=== PATIENT | male | born 1960 | race Caucasian/White ===

== ENCOUNTER → 2016-08-25 | Outpatient (CLI) | payer OTHER | LOC: FIMAGING 08:33 | PROVIDERS: ATTEND Internal Medicine Hematology & Oncology | DX: R05 Cough (principal); Z85.47 Personal history of malignant neoplasm of testis ==

== ENCOUNTER 2017-08-31 21:00 | Observation (INO) | payer OTHER ==
--- NOTE | 2017-08-31 21:14 | CPEKG ---
Heart Rate: 70 RR Interval: 857 P-R Interval: 200 QRSD Interval: 114 QT Interval: 384 QTC Interval: 415 P Atkins: 31 QRS Atkins: -9 T Wave Atkins: 7 EKG Severity - ABNORMAL ECG - EKG Impression: SINUS RHYTHM EKG Impression: INCOMPLETE RIGHT BUNDLE BRANCH BLOCK Electronically Signed By: Indra Brady 31-Aug-2017 21:37:42
--- NOTE | 2017-08-31 21:21 | EDPHY ---
H & P Time Seen by Provider: 08/31/17 21:18 HPI/ROS: Chief complaint. Chest pain HPI. 57-year-old male presents to the emergency department with chest pain for the past 24 hr. He describes as left anterior steady and dull ache. Radiates through to his back. He does not have shortness of breath how he however he has increased pain with deep breathing but not with exertion. Recent plane travel to [place]. He does have some pain posterior left thigh and calf. No fever or cough. He does have a history of DVT. No history of heart problems and had a stress test last year that the decision was to treat him medically but he did have some plaque apparently. 1 baby aspirin this morning. Patient does carry nitroglycerin with him but did not take it ROS Constitutional. no fever/chills, no weakness Eyes. no problems with vision ENT. no sore throat, no nasal drainage Cardiovascular. Left anterior chest discomfort Respiratory. Pain with deep breathing but not short of breath or cough Abdominal. no abdominal pain, no nausea/vomiting, no diarrhea . no problems urinating MS. Thigh and calf pain Skin. no rash Lymph. no swollen glands Neuro. no headache, no dizziness, no difficulty walking or with speech Past Medical/Surgical History: Appendectomy, testicular cancer with orchiectomy, DVT, GERD Father had an DC at age 65 and had heart problems developing at age 57 Social History: , nonsmoker, no alcohol Physical Exam: General Appearance: Alert well-developed male mild distress vital signs are stable Eyes: Pupils equal and round no pallor or injection. ENT, Mouth: Mucous membranes are moist. Respiratory: There are no retractions, lungs are clear to auscultation. Cardiovascular: Regular rate and rhythm. Gastrointestinal: Abdomen is soft and nontender, no masses, bowel sounds normal. Neurological: Awake and alert, sensory and motor exams grossly normal. Skin: Warm and dry, no rashes. Musculoskeletal: Neck is supple nontender. Extremities symmetrical, full range of motion. Psychiatric: Patient is oriented X 3, there is no agitation. Constitutional: Initial Vital Signs Temperature (C) 36.9 C 08/31/17 21:25 Heart Rate 73 08/31/17 21:25 Respiratory Rate 18 08/31/17 21:25 Blood Pressure 158/96 H 08/31/17 21:25 O2 Sat (%) 93 08/31/17 21:25 O2 Delivery Mode Room Air Allergies/Adverse Reactions: No Known Allergies Allergy (Verified 08/31/17 21:24) Home Medications: Medication Instructions Recorded [place]-3 Fatty Acids/Fish Oil [Fish 1 each PO 04/05/11 Oil 1,000 mg Softgel] Omeprazole mg PO 04/05/11 Aspirin 81mg (*) 08/31/17 Simvastatin 08/31/17 Medical Decision Making - Diagnostics EKG Interpretation: EKG interpreted by me shows normal sinus rhythm normal interval. There is left axis deviation. Incomplete right bundle branch block. No significant ST elevation or depression. No arrhythmia. The rate is 70 No previous EKGs for comparison Imaging Results: Imaging Impressions Chest/Thorax CTA 08/31/17 21:36 Impression: 1. No pulmonary embolism. 2. Clear lungs. Findings and recommendations discussed with SILVIA FELIX at 10:30 PM hour, 08/31/2017. Final report concurs with initial preliminary interpretation. CT angiogram reviewed by me and discussed with Dr. Abel shows no evidence for pulmonary embolus or pneumonia Procedures: IV normal saline, monitor. Aspirin and nitroglycerin in the ED ED Course/Re-evaluation: On serial evaluations patient is stable. Patient does however have continuing chest discomfort. The patient, his , and I discussed imaging and lab results. We discussed treatment plan including recommendation for admission. They expressed understanding and agreement Patient insist that he and his will drive private vehicle to [facility] for admission. Risks and benefits of this are discussed. Differential Diagnosis: The patient has had previous DVT and PE and recent plane flight. I considered pulmonary embolus. He also has both personal history of some coronary artery disease with an abnormal stress test though he refused coronary angiography. We do not know his anatomy. He has family history of coronary artery disease. No evidence currently for acute DC. - Data Points Laboratory Results: Laboratory Results 08/31/17 21:15 08/31/17 21:15 08/31/17 08/31/17 08/31/17 21:15 21:15 21:15 WBC 6.10 10^3/uL 10^3/uL (3.80-9.50) RBC 4.99 10^6/uL 10^6/uL (4.40-6.38) Hgb 15.1 g/dL g/dL (13.7-17.5) Hct 43.6 % % (40.0-51.0) MCV 87.4 fL fL (81.5-99.8) MCH 30.3 pg pg (27.9-34.1) MCHC 34.6 g/dL g/dL (32.4-36.7) RDW 13.2 % % (11.5-15.2) Plt Count 185 10^3/uL 10^3/uL (150-400) MPV 9.4 fL fL (8.7-11.7) Neut % (Auto) 50.7 % % (39.3-74.2) Lymph % (Auto) 33.0 % % (15.0-45.0) [place] % (Auto) 11.3 % % (4.5-13.0) Eos % (Auto) 4.1 % % (0.6-7.6) Baso % (Auto) 0.7 % % (0.3-1.7) Nucleat RBC Rel Count 0.0 % % (0.0-0.2) Absolute Neuts (auto) 3.10 10^3/uL 10^3/uL (1.70-6.50) Absolute Lymphs (auto) 2.01 10^3/uL 10^3/uL (1.00-3.00) Absolute Monos (auto) 0.69 10^3/uL 10^3/uL (0.30-0.80) Absolute Eos (auto) 0.25 10^3/uL 10^3/uL (0.03-0.40) Absolute Basos (auto) 0.04 10^3/uL 10^3/uL (0.02-0.10) Absolute Nucleated RBC 0.00 10^3/uL 10^3/uL (0-0.01) Immature Gran % 0.2 % % (0.0-1.1) Immature Gran # 0.01 10^3/uL 10^3/uL (0.00-0.10) PT 12.8 SEC SEC (12.0-15.0) INR 0.97 (0.83-1.16) APTT 90.0 SEC H SEC (23.0-38.0) D-Dimer < 0.27 ug/mLFEU ug/mLFEU (0.00-0.50) Sodium 140 mEq/L mEq/L (135-145) Potassium 3.7 mEq/L mEq/L (3.5-5.2) Chloride 104 mEq/L mEq/L (97-110) Carbon Dioxide 25 mEq/l mEq/l (22-31) Anion Gap 11 mEq/L mEq/L (8-16) BUN 19 mg/dL mg/dL (7-23) Creatinine 1.2 mg/dL mg/dL (0.7-1.3) Estimated GFR > 60 Glucose 95 mg/dL mg/dL (70-100) Calcium 9.1 mg/dL mg/dL (8.5-10.4) Troponin I < 0.012 ng/mL ng/mL (0.000-0.034) NT-Pro-B Natriuret Pep 106 pg/mL pg/mL (0-125) Medications Given: Discontinued Medications Aspirin (Aspirin) 324 mg PO EDNOW ONE Stop: 08/31/17 21:36 Last Admin: 08/31/17 21:47 Dose: 324 mg Sodium Chloride (Ns) 1,000 mls @ 0 mls/hr IV EDNOW ONE; Wide Open PRN Reason: Protocol Stop: 08/31/17 21:36 Last Admin: 08/31/17 21:48 Dose: 1,000 mls Departure - Departure Disposition: [facility] Inpatient Acute Clinical Impression: Chest pain Qualifiers: Chest pain type: unspecified Qualified Code(s): R07.9 - Chest pain, unspecified Condition: Fair
[2017-08-31] MEDS ORDERED: ASPIRIN 81 MG CHEWABLE TAB PO ONE (21:35)
[2017-08-31] MEDS ORDERED: NITROGLYCERIN 0.4 MG BTL SL PRN (21:35)
[2017-08-31] MEDS ORDERED: NS 1,000 ML IV ONE (21:35)
[2017-08-31 21:40] LABS: PLATELET COUNT 185 10^3/uL (150-400)
[2017-08-31 21:44] LABS: INR 0.97 (0.83-1.16); PROTIME(PATIENT) 12.8 SEC (12.0-15.0)
[2017-08-31] MEDS ORDERED: IOPAMIDOL (ISOVUE 370) 100 ML BTL IV ONE (21:51)
[2017-08-31] MEDS ORDERED: ONDANSETRON DISINTEGRATING 4 MG TAB PO PRN (22:59)
[2017-08-31] MEDS ORDERED: ACETAMINOPHEN 325 MG TAB PO PRN (22:59)
[2017-08-31] MEDS ORDERED: ONDANSETRON 4 MG/2 ML VIAL IVP PRN (22:59)
--- NOTE | 2017-08-31 23:50 | PDGENHP ---
History and Physical - Chief Complaint Chest pain - History of Present Illness 57 yo M w/ hx of CAD and DVT presents with chest pain. He describes a steady, left sided ache that radiates to his back. He has no clear exacerbating or alleviating symptoms. The pain has been present for >24 hours. He states this is fairly similar to the discomfort that led him to see a health care administrator last year. Of note, he did see Dr. Mckinley Pozo for 1 year of atypical chest pain. This was evaluated with a nuclear imaging study in December of 2016 with abnormal findings. Patient was initially scheduled for angiography but declined and has been managed medically since. The results of the study are below. There is no motion or soft tissue attenuation on rest and stress . Myocardial Perfusion Imaging: Shows a small moderate area of lateral wall ischemia. There is no transient ischemic dilatation. LV systolic function: There is normal left ventricular systolic function with no wall motion abnormalities with normal thickening . Ejection fraction is normal at 67 % The Lung Heart Ratio is Normal at 0.36. The LV EDV= 94 ml N Male<142ml ). The LV ESV= 31 ml ( N Male<65ml ). RECOMMENDATIONS/CONCLUSIONS: Small area of lateral wall ischemia associated with normal LV function. Study consistent with branch vessel disease. Clinical correlation suggested Comparison: There are no prior studies for comparison. History Information - Allergies/Home Medication List Allergies/Adverse Reactions: No Known Allergies Allergy (Verified 08/31/17 21:24) Home Medications: [place]-3 Fatty Acids/Fish Oil [Fish Oil 1,000 mg Softgel] 1 each PO 04/05/11 [ Last Taken Unknown] Omeprazole mg PO 04/05/11 [Last Taken Unknown] Aspirin 81mg (*) 08/31/17 [Last Taken Unknown] Simvastatin 08/31/17 [Last Taken Unknown] I have personally reviewed and updated: family history, medical history - Past Medical History coronary artery disease, cancer - Surgical History Reports: appendectomy Additional surgical history: Orchiectomy - Family History Positive for: CAD (Father had OH at 65) - Social History Smoking Status: Former smoker Review of Systems Review of Systems: ROS: 10pt was reviewed & negative except for what was stated in HPI & below Physical Exam Physical Exam: Temp Pulse Resp BP Pulse Ox 36.6 C 60 16 128/78 H 94 08/31/17 23:31 08/31/17 23:31 08/31/17 23:31 08/31/17 23:31 08/31/17 23:31 Constitutional: no apparent distress, not in pain Eyes: PERRL, EOMI Ears, Nose, Mouth, Throat: moist mucous membranes, no oral mucosal ulcers Cardiovascular: regular rate and rhythym, no murmur, rub, or gallop Respiratory: no respiratory distress, no rales or rhonchi Gastrointestinal: normoactive bowel sounds, soft, non-tender abdomen Skin: warm, normal color Musculoskeletal: full muscle strength, no muscle tenderness Neurologic: AAOx3, CN II-XII Intact Psychiatric: interacting appropriately, not anxious Lab Data & Imaging Review 08/31/17 21:15 08/31/17 21:15 WBC 6.10 10^3/uL (3.80-9.50) 08/31/17 21:15 RBC 4.99 10^6/uL (4.40-6.38) 08/31/17 21:15 Hgb 15.1 g/dL (13.7-17.5) 08/31/17 21:15 Hct 43.6 % (40.0-51.0) 08/31/17 21:15 MCV 87.4 fL (81.5-99.8) 08/31/17 21:15 MCH 30.3 pg (27.9-34.1) 08/31/17 21:15 MCHC 34.6 g/dL (32.4-36.7) 08/31/17 21:15 RDW 13.2 % (11.5-15.2) 08/31/17 21:15 Plt Count 185 10^3/uL (150-400) 08/31/17 21:15 MPV 9.4 fL (8.7-11.7) 08/31/17 21:15 Neut % (Auto) 50.7 % (39.3-74.2) 08/31/17 21:15 Lymph % (Auto) 33.0 % (15.0-45.0) 08/31/17 21:15 [place] % (Auto) 11.3 % (4.5-13.0) 08/31/17 21:15 Eos % (Auto) 4.1 % (0.6-7.6) 08/31/17 21:15 Baso % (Auto) 0.7 % (0.3-1.7) 08/31/17 21:15 Nucleat RBC Rel Count 0.0 % (0.0-0.2) 08/31/17 21:15 Absolute Neuts (auto) 3.10 10^3/uL (1.70-6.50) 08/31/17 21:15 Absolute Lymphs (auto) 2.01 10^3/uL (1.00-3.00) 08/31/17 21:15 Absolute Monos (auto) 0.69 10^3/uL (0.30-0.80) 08/31/17 21:15 Absolute Eos (auto) 0.25 10^3/uL (0.03-0.40) 08/31/17 21:15 Absolute Basos (auto) 0.04 10^3/uL (0.02-0.10) 08/31/17 21:15 Absolute Nucleated RBC 0.00 10^3/uL (0-0.01) 08/31/17 21:15 Immature Gran % 0.2 % (0.0-1.1) 08/31/17 21:15 Immature Gran # 0.01 10^3/uL (0.00-0.10) 08/31/17 21:15 PT 12.8 SEC (12.0-15.0) 08/31/17 21:15 INR 0.97 (0.83-1.16) 08/31/17 21:15 APTT 90.0 SEC (23.0-38.0) H 08/31/17 21:15 D-Dimer < 0.27 ug/mLFEU (0.00-0.50) 08/31/17 21:15 Sodium 140 mEq/L (135-145) 08/31/17 21:15 Potassium 3.7 mEq/L (3.5-5.2) 08/31/17 21:15 Chloride 104 mEq/L (97-110) 08/31/17 21:15 Carbon Dioxide 25 mEq/l (22-31) 08/31/17 21:15 Anion Gap 11 mEq/L (8-16) 08/31/17 21:15 BUN 19 mg/dL (7-23) 08/31/17 21:15 Creatinine 1.2 mg/dL (0.7-1.3) 08/31/17 21:15 Estimated GFR > 60 08/31/17 21:15 Glucose 95 mg/dL (70-100) 08/31/17 21:15 Calcium 9.1 mg/dL (8.5-10.4) 08/31/17 21:15 Troponin I < 0.012 ng/mL (0.000-0.034) 08/31/17 21:15 NT-Pro-B Natriuret Pep 106 pg/mL (0-125) 08/31/17 21:15 Imaging Review: Imaging Impressions Chest/Thorax CTA 08/31/17 21:36 Impression: 1. No pulmonary embolism. 2. Clear lungs. Findings and recommendations discussed with SILVIA FELIX at 10:30 PM hour, 08/31/2017. Final report concurs with initial preliminary interpretation. Visualized and Interpreted EKG results: Yes EKG Interpretation: Positive for: normal sinsus rhythm, other (Incomplete RBBB) Assessment & Plan Assessment: 57 yo M w/ hx of CAD presents with chest pain. Plan: 1. Chest pain - Although atypical patient does have history of abnormal stress test in December of 2016. He declined catheterization at that time and instead opted for medical treatment. Troponin negative in ED and ECG without acute ischemia. - Admit to PCU for observation - Monitor on telemetry, trend cardiac enzymes - Noting history of abnormal stress test without cath, will consult cardiology to help discuss next step 2. CAD - Abnormal stress test in December of 2016 consistent with lateral ischemia, likely from a branch artery. On ASA and statin. - Acute management as above 3. Hx of DVT - Provoked by port for chemo; has not had clot in 8 years. CTPE negative in ED. 4. Hx of testicular cancer - Treated with surgery and radiation Diet - NPO @ PR Code - Full Ppx - LMWH Dispo - Admit to PCU for observation
[2017-09-01] MEDS ORDERED: NITROGLYCERIN 0.4 MG BTL SL PRN ×3 (00:08→16:19)
[2017-09-01 04:28] LABS: PLATELET COUNT 154 10^3/uL (150-400)
[2017-09-01 08:36] VITALS: O2SAT 94
[2017-09-01 08:39] VITALS: TEMP 99.5
[2017-09-01] MEDS ORDERED: ENOXAPARIN 40 MG/0.4 ML SYR SC SCH (09:00)
[2017-09-01] MEDS ORDERED: DIAZEPAM 5 MG TAB PO ONE (11:07)
[2017-09-01] MEDS ORDERED: ASPIRIN EC 325 MG TAB PO ONE ×2 (11:07→11:34)
[2017-09-01] MEDS ORDERED: TEMAZEPAM 15 MG CAP PO PRN (11:07)
[2017-09-01] MEDS ORDERED: ACETAMINOPHEN 325 MG TAB PO PRN (11:07)
[2017-09-01] MEDS ORDERED: diphenhydrAMINE 25 MG CAP PO ONE (11:07)
[2017-09-01] MEDS ORDERED: FAMOTIDINE 20 MG TAB PO ONE (11:07)
[2017-09-01] MEDS ORDERED: NS 1,000 ML IV SCH (11:15)
[2017-09-01] MEDS ORDERED: DIAZEPAM 5 MG TAB ONE (11:34)
[2017-09-01] MEDS ORDERED: FAMOTIDINE 20 MG TAB ONE (11:34)
--- NOTE | 2017-09-01 12:32 | GCON ---
[f rep st] CONSULTATION He is admitted to the hospital with days of left chest discomfort. It is intermittent. It comes and goes, but is actually lasting quite long when it occurs to him. It can last for hours or all day lo ng. It is slightly worse with exertion. However, it is also worse with position. When he raises his arm over his head at night, it is worse. Sometimes when he lays on his left side, it is worse. It is more of a steady pain. It is not sharp or dull. It is just an ache that is there. It does no t radiate into the arm or jaw. He has had no sweating, nausea, vomiting. He has had no diaphoresis. He does not have shortness of breath or dyspnea on exertion. He has not been exercising. He was in [place] on a trip and that is when the pain recurred. He had this pain 8 months ago and went to see Dr. Clemens for an evaluation. At that time, he had an abnormal nuclear stress test. He was recommended to have coronary angiography, but he refused. He said he would still not be here for further evaluation if the pain had not come back. He has no orthopnea, PND, dyspnea on exertion. No cough, hemoptysis, pleuritic chest pain, shortness of breath, sinus infection, upper respiratory t ract infection. No fever, chills, or cough. No nausea, vomiting, diarrhea, constipation, weight loss. No trauma to the head, neck, or chest. No lightheadedness, dizziness, syncope. No history of atrial arrhythmias, palpitations. He does not have dysuria or frequency. He has no other major complaints at this time. The patient had a remote history of a DVT. He has no symptoms associated with that at this time. RISK FACTORS: Positive for obesity, hyperlipidemia, and an abnormal nuclear stress test. FAMILY HISTORY: Patient has a plus-minus family history of premature coronary disease, so to be safe it is worth saying that he does have a family history of premature coronary disease. Cardiac risk factors are negative for diabetes, hypertension, hyperuricemia or smoking at this time. Patient has never had known coronary disease. No myocardial infarction, stenting, or other cardiovas cular interventions. ALLERGIES: None. MEDICATIONS: Simvastatin, aspirin, some [id number] medications. FAMILY HISTORY: His father had a stent at age 57, but he says that maybe it was at 52 or 55. He him self is not sure. His father and his paternal grandfather both at age 65 of myocardial infarcti ons. There has been no other family history of clear-cut people having myocardial infarction at 55 o r less. PAST SURGICAL HISTORY: Surgical history is in the record. 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 He lives with his , who is healthy. They have 4 children who are girls. They are all healthy. He does not ex ercise because he has bad knees. The right is worse than the left, and so bad that he thinks he need s to get them worked on surgically. He does not smoke cigarettes. What he does do is smoke a cigar 6 times a year. He does not drink significant amounts of alcohol. REVIEW OF SYSTEMS: 10-point review of systems negative except as noted. PHYSICAL EXAMINATION: VITAL SIGNS: Blood pressure 115/70, heart rate 65, respiratory rate 8. GENER AL: He is sitting comfortably in a hospital bed. HEENT: Pupils equal and reactive. Mucous membran es of mouth are moist. CARDIOVASCULAR: S1, S2. Soft systolic murmur left sternal border, no diasto lic murmur. No S3, S4, or rubs. PULMONARY: Rhonchi. No rales, wheezing, dullness. ABDOMEN: Soft , nontender, without masses. Abdominal exam does show the patient is significantly overweight. Ther e is no organomegaly. Bowel sounds are normal. EXTREMITIES: No edema, inflammation or ulceration. CRANIAL NERVES: Cranial nerves 2-12 grossly normal. Motor and sensory intact. PSYCH: No obvious anxiety or depression. SKIN: Shows age-related changes. CARDIOVASCULAR: S1, S2. Soft systolic mu rmur left sternal border. No diastolic murmur. No S3, S4. No rubs. Abdominal exam does show the p atient is significantly overweight. There is no organomegaly. Bowel sounds are normal. CVA: No te nderness. NEUROLOGIC: Exam is intact. LAB: Troponins are negative. The patient had a nuclear stress test 8 months ago, which showed a sma ll moderate area of lateral wall ischemia, normal LV systolic function. Ejection fraction 67%. CT scan of the lung shows no pulmonary embolism. Clear lungs. ASSESSMENT AND PLAN: 1. Chest pain. 2. Abnormal nuclear stress test. 3. Hyperlipidemia. 4. Obesity. 5. Sedentary lifestyle. The patient has worked hard at a stressful position for a long time. He is having what is very atypi jacinto chest pain. However, he has an abnormal nuclear stress test. He had a father who had a stent so mewhere around the age of 55, and a father and grandfather at 65 of coronary disease. He is obe se. His lipids are elevated. He has a very remote smoking history and he is at risk for myocardial infarction, sudden cardiac , etc. So, I would recommend we proceed to coronary angiography at t his time. I have told him about the risks of cath, and I have also told him about the options he has , which include getting a 2nd opinion, doing further noninvasive testing before we do invasive testin g, getting medical therapy for this observation hospitalization, nontraditional therapy, etc. He is willing to go ahead with angiography because his own father had a negative nuclear stress test 2 days before he dropped of a heart attack, so he understands the limitations and has lived through [facility] limitations of stress testing. So, he and his have been present. We went over all the options and they want to proceed. Jarrell angeles answered all of both of their questions. I took extra time to explain to him that we may find critical coronary disease that requires stenting or other intervention. However, his pain is quite atypical for coronary artery disease and, even if we stented something, we could not be sure until down the road if his pain improved and went away or not. They understand that. And they want to proceed. They have accepted the idea of whatever interventions are indicated, and we have gone over those. 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 History of deep venous thrombosis. His evaluation for pulmonary embolic disease is negative at this time. All their questions have been answered. /[id number]/MODL
[2017-09-01] MEDS ORDERED: LIDOCAINE 1% 300 MG/30 ML SDV ONE (12:50)
[2017-09-01] MEDS ORDERED: fentaNYL 100 MCG/2 ML INJ ONE ×2 (12:51→13:48)
[2017-09-01] MEDS ORDERED: MIDAZOLAM 2 MG/2 ML VIAL ONE ×3 (12:51→13:48)
[2017-09-01] MEDS ORDERED: IOPAMIDOL (ISOVUE-370) 150 ML BTL IV ONE (12:51)
--- NOTE | 2017-09-01 13:18 | PDPROPOC ---
Sedation Plan of Care ASA Classification: ASA 1 Mallampati Score: Class 1 Mallampati Reference Image: Patient passed 3-3-2 rule?: Yes
--- NOTE | 2017-09-01 13:37 | PDHPUP ---
History & Physical Update H&P update statement: This history and physical update is based on an assessment of the patient which was completed after admission or registration (within 24 hours), but prior to the surgery/procedure. H&P update: H&P reviewed & patient examined (pt for cath julio cesar for ongoing rest cp and hx of abnl nuc ett and multiple risk factors for cad. )
--- NOTE | 2017-09-01 14:21 | PDDXCAT ---
Diagnostic Cath Note - . 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 may be developmental . EDP: 21 LVEF: 57 Wall motion: nl / no mr. no Complications: w/o Estimated blood loss: <50ml Patient Problems: Problems Problem Status Onset Chest pain Acute
--- NOTE | 2017-09-01 15:45 | ASMTCASEMG ---
Living Arrangements What is your living Answers: With Spouse arrangement? Who do you live with? Type Of Residence What kind of residence do Answers: House you live in? Discharge Plan Comments Coordination Status Comments Notes: Pt is a 57 y/o female admitted for chest pain. Pt will most likely d/c independent when medically stable. No therapies ordered at this time. CM available for changes. Plan: Independent Date Signed: 09/01/2017 03:44 PM Electronically Signed By:SYED Zaldivar
[2017-09-01 15:49] VITALS: PULSE 54; RESP 16
--- NOTE | 2017-09-01 15:56 | HOSPPROG ---
Hospitalist Progress Note Assessment/Plan: 57 yo m w cp, neg eval home today see dc summary Subjective: neg cath Objective: Vital Signs Temp Pulse Resp BP Pulse Ox 37.5 C 54 L 16 154/85 H 94 09/01/17 08:34 09/01/17 15:35 09/01/17 15:35 09/01/17 15:35 09/01/17 15:35 Laboratory Results 09/01/17 03:34 09/01/17 03:34 08/31/17 09/01/17 09/02/17 05:59 05:59 05:59 Intake Total 1100 Balance 1100 PT 12.8 SEC (12.0-15.0) 08/31/17 21:15 INR 0.97 (0.83-1.16) 08/31/17 21:15 - Physical Exam Constitutional: no apparent distress, not in pain Eyes: PERRL, anicteric sclera Ears, Nose, Mouth, Throat: moist mucous membranes, hearing normal Cardiovascular: regular rate and rhythym, no murmur, rub, or gallop Respiratory: no respiratory distress, no rales or rhonchi Gastrointestinal: normoactive bowel sounds, soft, non-tender abdomen Genitourinary: no bladder fullness, No lopez in urethra Skin: warm, normal color Musculoskeletal: full muscle strength Neurologic: AAOx3 ICD10 Worksheet Patient Problems: Problems Problem Status Onset Chest pain Acute
[2017-09-01] MEDS ORDERED: OXYCODONE/APAP 5/325 TAB PO PRN (16:19)
[2017-09-01] MEDS ORDERED: ONDANSETRON 4 MG/2 ML VIAL IVP PRN (16:19)
[2017-09-01] MEDS ORDERED: ATROPINE SULFATE 1 MG/10 ML SYR IVP PRN (16:19)
[2017-09-01] MEDS ORDERED: HYDROCODONE/APAP 5/325 TAB PO PRN (16:19)
--- NOTE | 2017-09-01 16:45 | ECHO ---
[email or web address] [address] [address] Main: [phone] Fax: Transthoracic Echocardiogram Name: MARCELLA SALAZAR MR#: [id number] Study Date: 09/01/2017 Study Time: 02:48 PM Date of : 1960 Age: 57 year(s) Height: 182.9 cm (72 in.) Weight: 120.2 kg (265 lb.) BSA: 2.4 m2 Gender: Male Examination: Echo Indication: COPD/SOB/CP Image Quality: Contrast: Requested by: Arturo Severino BP: 126 mmHg/86 mmHg Heart Rate: Rhythm: Indication: COPD/SOB/CP Procedure Staff [place] Applier: Jonna Jones RDCS Reading Physician: Arturo Severino MD Requesting Provider: Conclusions: Normal size left ventricle. Mild concentric LV hypertrophy. Normal global systolic LV function. The ejection fraction is estimated to be 65-70 %. No regional wall motion abnormality. Normal size right ventricle. The left atrium is normal in size. The right atrium is normal in size. The mitral valve is normal in appearance and function. Trivial mitral valve regurgitation. The aortic valve is normal in appearance and function. The tricuspid valve is normal in appearance and function. Measurements: Chambers Valvular Assessment AV/MV Valvular Assessment TV/PV Normal Normal Normal Name Value Range Name Value Range Name Value Range Ao Harmony (MM): 4.2 cm (2.2 cm-3.7 AV meanP mmHg ( - ) cm) MV E Vmax: 0.77 m/s ( - ) LVDd (2D): 4.3 cm (4.2 cm-5.9 MV A Vmax: 0.84 m/s ( - ) cm) MV E/A: 0.92 ( - ) LVEF (MOD4): 73 % (>=55 %) EF Range: 65-70 % Continued Measurements: Chambers Valvular Assessment AV/MV Name Value Name Value LADs: 3.8 cm MV E' Septal: 0.07 m/s Patient: MARCELLA SALAZAR Study Date: 09/01/2017 Page 1 of 2 02:48 PM LADs Lon.7 cm MV E/E' Septal: 11.30 LA Area: 20.7 cm2 MV E/E' Lateral: 6.50 Findings: Left Ventricle: Normal size left ventricle. Mild concentric LV hypertrophy. Normal global systolic LV function. The ejection fraction is estimated to be 65-70 %. No regional wall motion abnormality. Right Ventricle: Normal size right ventricle. Left Atrium: The left atrium is normal in size. Right Atrium: The right atrium is normal in size. Mitral Valve: The mitral valve is normal in appearance and function. Trivial mitral valve regurgitation. Aortic Valve: The aortic valve is normal in appearance and function. Tricuspid Valve: The tricuspid valve is normal in appearance and function. Trivial tricuspid valve regurgitation. Pulmonic Valve: Pulmonary valve not well visualized. Aorta: The aorta is normal. Pericardium: No pericardial effusion. (No Signature Object) Patient: MARCELLA SALAZAR Study Date: 09/01/2017 Page 2 of 2 02:48 PM [id number]
--- NOTE | 2017-09-01 17:14 | GDS ---
[f rep st] DISCHARGE SUMMARY DISCHARGE DIAGNOSES: 1. Chest pain of uncertain etiology. 2. History of deep venous thrombosis. 3. Suspected coronary artery disease. Patient presented with chest pain. He had nonischemic EKG, negative troponin, negative CT of his [address]. He has a history of positive stress test. He underwent angiogram with Dr. Arturo Severino that s howed an ostial 15% lesion in the right coronary artery that was felt probably not to even be coronar y disease, such as developmental. He had intact LVEF with a LVEDP of 20 mmHg. It was considered a n egative catheterization. The patient is discharged home on unchanged medication regimen of aspirin, statin. /[id number]/MODL
[2017-09-01 18:15] VITALS: BP 141/84
[2017-09-02] MEDS ORDERED: ASPIRIN 81 MG CHEWABLE TAB PO SCH (09:00)
[2017-09-02] MEDS ORDERED: PANTOPRAZOLE SODIUM 40 MG TAB PO SCH (09:00)
[2017-09-02] MEDS ORDERED: NON-FORMULARY NEW DRUG (Omeprazole [Omeprazole] 40 MG) PO SCH (09:00)
[2017-09-02] MEDS ORDERED: OMEGA-3 FATTY ACIDS 1,000 MG CAP PO SCH (09:00)
[2017-09-02] MEDS ORDERED: ATORVASTATIN CALCIUM 20 MG TAB PO SCH (09:00)
[2017-09-02] MEDS ORDERED: NON-FORMULARY NEW DRUG (Simvastatin [Zocor] 40 MG) PO SCH (09:00)
== END 2017-09-01 18:38 | disposition home or self-care (01) ==
LOC: CED 21:00 → CEDHOLD 22:59 → F2W 23:58
PROVIDERS: ADMIT Student in an Organized Health Care Education/Training Program; ATTEND Internal Medicine
PROC: B2151ZZ Fluoroscopy of Left Heart using Low Osmolar Contrast (ICD-10-PCS; principal; 2017-08-31)
PROC: 4A023N7 Measurement of Cardiac Sampling and Pressure, Left Heart, Percutaneous Approach (ICD-10-PCS; principal; 2017-08-31)
PROC: B2111ZZ Fluoroscopy of Multiple Coronary Arteries using Low Osmolar Contrast (ICD-10-PCS; principal; 2017-08-31)
DX: R07.9 Chest pain, unspecified (principal); R94.39 Abnormal result of other cardiovascular function study; E78.5 Hyperlipidemia, unspecified; E66.9 Obesity, unspecified; Z68.36 Body mass index [BMI] 36.0-36.9, adult; K21.9 Gastro-esophageal reflux disease without esophagitis; I25.10 Atherosclerotic heart disease of native coronary artery without angina pectoris; Z79.82 Long term (current) use of aspirin; Z87.891 Personal history of nicotine dependence; Z86.718 Personal history of other venous thrombosis and embolism; Z85.47 Personal history of malignant neoplasm of testis; Z82.49 Family history of ischemic heart disease and other diseases of the circulatory system; Z90.79 Acquired absence of other genital organ(s)
CPT/HCPCS: 71275; 93005; 93306; 93458; G0378; 80048-PO; 83880-PO; 84484-PO; 85025-PO; 85378-PO; 85610-PO; 85730-PO; J1644; J2250; J3010; Q9967

== ENCOUNTER → 2018-05-08 | Outpatient (CLI) | payer OTHER | LOC: FIMAGING 07:36 | PROVIDERS: ATTEND Orthopaedic Surgery | DX: M17.11 Unilateral primary osteoarthritis, right knee (principal) ==

== ENCOUNTER 2018-06-06 06:39 | Observation (INO) | payer OTHER ==
--- NOTE | 2018-06-06 06:26 | PDHPUP ---
History & Physical Update H&P update statement: This history and physical update is based on an assessment of the patient which was completed after admission or registration (within 24 hours), but prior to the surgery/procedure. H&P update: H&P reviewed & patient examined, no change in patient's condition since H&P completed
[2018-06-06] MEDS ORDERED: ceFAZolin 2 GM/DEXTROSE 100 ML IV ONE (07:03)
[2018-06-06] MEDS ORDERED: DEXAMETHASONE 4 MG/ML VIAL IVP ONE (07:03)
[2018-06-06] MEDS ORDERED: FAMOTIDINE 20 MG TAB PO ONE (07:03)
[2018-06-06] MEDS ORDERED: ACETAMINOPHEN 325 MG TAB PO ONE (07:03)
[2018-06-06] MEDS ORDERED: LIDOCAINE 1% 2 ML INJ ID PRN (07:07)
[2018-06-06] MEDS ORDERED: LR 1,000 ML IV ONE (07:07)
[2018-06-06] MEDS ORDERED: TRANEXAMIC ACID 3,000 MG/50 ML BAG IRR ONE (07:46)
[2018-06-06] MEDS ORDERED: ROPIVACAINE 0.2% 80 MG, EPINEPHrine 0.2 MG, KETOROLAC TROMETHAMINE 30 MG in SYRINGE 0 ML IU ONE (08:00)
[2018-06-06] MEDS ORDERED: TRANEXAMIC ACID 3,000 MG in NS (SYRINGE) 50 ML IRR ONE (08:00)
[2018-06-06] MEDS ORDERED: MIDAZOLAM 2 MG/2 ML VIAL IVP ONE (09:04)
--- NOTE | 2018-06-06 09:06 | PDANEPAE ---
ANE Past Medical History - Cardiovascular History Hx Hypertension: No Hx Arrhythmias: No Hx Chest Pain: Yes Hx Coronary Artery / Peripheral Vascular Disease: No Hx CHF / Valvular Disease: No Hx Palpitations: No Cardiovascular History Comment: negative heart cath August 2017 - Pulmonary History Hx COPD: No Hx Asthma/Reactive Airway Disease: No Hx Recent Upper Respiratory Infection: No Hx Oxygen in Use at Home: No Hx Sleep Apnea: Yes Sleep Apnea Screening Result - Last Documented: Positive Pulmonary History Comment: DAO positive, uses Cpap. received bleomycin treatments, 2007 - no Dx of pulmonary fibrosis, has never had PFT's - Neurologic History Hx Cerebrovascular Accident: No Hx Seizures: No Hx Dementia: No - Endocrine History Hx Diabetes: No Obesity: mild - Renal History Hx Renal Disorders: No - Liver History Hx Hepatic Disorders: No - Neurological & Psychiatric Hx Hx Neurological and Psychiatric Disorders: No - Cancer History Hx Cancer: Yes Cancer History Comment: testicular CA, 2007 - Congenital Disorder History Hx Congenital Disorders: No - GI History GERD: moderate Hx Gastrointestinal Disorders: Yes Gastrointestinal History Comment: GERD. hiatal hernia - Other Health History Other Health History: wears glasses for reading. tinitis - Chronic Pain History Chronic Pain: Yes (right knee) - Surgical History Prior Surgeries: appendectomy. right knee scope. power port placement & removed. heart cath. upper and lower teeth removal with permanent implants ANE Review of Systems Review of Systems: - Exercise capacity METS (RN): 4 METS ANE Patient History - Allergies Allergies/Adverse Reactions: cats Allergy (Uncoded 06/06/18 07:31) Wheezing enviromental Allergy (Uncoded 06/06/18 07:31) Itching - Home Medications Home medications: home medication list seen and reviewed Home Medications: Aspirin [Aspirin 81mg (*)] 81 mg PO DAILY 08/31/17 [Last Taken 05/27/18] Simvastatin [Zocor] 40 mg PO DAILY 08/31/17 [Last Taken 06/06/18 05:30] [place]-3 Fatty Acids [Fish Oil 1000 mg (*)] 2,000 mg PO DAILY 09/01/17 [Last Taken 05/27/18] Omeprazole 40 mg PO DAILY 09/01/17 [Last Taken 06/06/18 05:30] - NPO status NPO Status: no food or drink >8 hours NPO Since - Liquids (Date): 06/06/18 NPO Since - Liquids (Time): 06:45 NPO Since - Solids (Date): 06/05/18 NPO Since - Solids (Time): 20:00 - Anes Hx Anes Hx: no prior problems - Smoking Hx Smoking Status: Former smoker - Family Anes Hx Family Hx Anesthesia Complications: none ANE Labs/Vital Signs - Vital Signs Blood Pressure: 151/97 Heart Rate: 66 Respiratory Rate: 16 O2 Sat (%): 94 Height: 182.88 cm Weight: 113.398 kg ANE Physical Exam - Airway Neck exam: FROM Mallampati Score: Class 3 Mouth exam: normal dental/mouth exam - Pulmonary Pulmonary: no respiratory distress, no rales or rhonchi, clear to auscultation - Cardiovascular Cardiovascular: regular rate and rhythym, no murmur, rub, or gallop - ASA Status ASA Status: II ANE Anesthesia Plan Anesthesia Plan: spinal Regional Anesthesia: adductor canal FNB
[2018-06-06] MEDS ORDERED: fentaNYL 100 MCG/2 ML INJ ONE (09:12)
[2018-06-06] MEDS ORDERED: DEXAMETHASONE 4 MG/ML VIAL ONE ×2 (09:13)
[2018-06-06] MEDS ORDERED: PROPOFOL/EMULSION 500 MG/50 ML BOTTLE IV ONE (09:32)
[2018-06-06] MEDS ORDERED: HYDROCODONE/APAP 5/325 TAB PO PRN (10:01)
[2018-06-06] MEDS ORDERED: LR 500 ML IV PRN (10:01)
[2018-06-06] MEDS ORDERED: fentaNYL 100 MCG/2 ML INJ IVP PRN (10:01)
[2018-06-06] MEDS ORDERED: NALOXONE HCL 0.4 MG/ML INJ IVP PRN (10:01)
[2018-06-06] MEDS ORDERED: ONDANSETRON 4 MG/2 ML VIAL IVP PRN ×2 (10:01→10:48)
[2018-06-06] MEDS ORDERED: ACETAMINOPHEN 500 MG TAB PO PRN (10:01)
[2018-06-06] MEDS ORDERED: oxyCODONE IR 5 MG TAB PO PRN (10:01)
[2018-06-06] MEDS ORDERED: PROMETHAZINE HCL 25 MG/ML INJ IVP PRN ×2 (10:01→10:48)
--- NOTE | 2018-06-06 10:47 | POSTOPPROG ---
Post Op Note Date of Operation: 06/06/18 Surgeon: Franklin Franco Railcar Switchman: agustina franco PA-C Anesthesiologist: dr. bermudez Anesthesia: Spinal, Other (Specify) (adductor canal block) Pre-op Diagnosis: right knee OA Post-op Diagnosis: same Indication: right knee pain Procedure: R TKA robot assisted severe knee OA Findings: r knee OA Inf/Abcess present in the surg proc area at time of surgery?: No EBL: 50-100
[2018-06-06] MEDS ORDERED: METOCLOPRAMIDE 10 MG/2 ML VIAL IVP PRN (10:48)
[2018-06-06] MEDS ORDERED: PROMETHAZINE HCL 25 MG SUPPR PR PRN (10:48)
[2018-06-06] MEDS ORDERED: POLYETHYLENE GLYCOL 3350 17 GM PKT PO PRN (10:48)
[2018-06-06] MEDS ORDERED: ONDANSETRON DISINTEGRATING 4 MG TAB PO PRN (10:48)
[2018-06-06] MEDS ORDERED: MAGNESIUM HYDROXIDE 30 ML UDCUP PO PRN (10:48)
[2018-06-06] MEDS ORDERED: BISACODYL 10 MG SUPP PR PRN (10:48)
[2018-06-06] MEDS ORDERED: DIPHENOXYLATE/ATROPINE LOMOTIL 1 TAB PO PRN (10:48)
[2018-06-06] MEDS ORDERED: TEMAZEPAM 15 MG CAP PO PRN (10:48)
[2018-06-06] MEDS ORDERED: LACTULOSE 20 GM/30 ML UDCUP PO PRN (10:48)
[2018-06-06] MEDS ORDERED: diphenhydrAMINE 25 MG CAP PO PRN (10:48)
[2018-06-06] MEDS ORDERED: LR 1,000 ML IV SCH (11:00)
--- NOTE | 2018-06-06 11:09 | POSTANESTH ---
Post Anesthetic Evaluation Cardiovascular Status: Normal, Stable, Similar to Pre-Op Cond Respiratory Status: Normal, Stable, Similar to Pre-op Cond. Level of Consciousness/Mental Status: Can Participate in Eval, Alert and Oriented Pain Control: Adequate, Prn Tx Ordered (Adductor canal nerve block in PACU using U/S, 20 ml 0.25% bupiv + epi, no evident complications.) Nausea/Vomiting Control: Adequate, Prn Tx Ordered Complications Possibly Related to Anesthesia: None Noted
[2018-06-06] MEDS: ACETAMINOPHEN 325 MG TAB PO SCH ×2 (12:33→17:17)
[2018-06-06] MEDS: CYCLOBENZAPRINE 10 MG TAB PO PRN (14:41)
[2018-06-06] MEDS: oxyCODONE IR 5 MG TAB PO PRN ×3 (14:41→21:53)
[2018-06-06] MEDS ORDERED: WARFARIN SODIUM 5 MG TAB PO SCH (16:00)
[2018-06-06] MEDS: ceFAZolin 2 GM/DEXTROSE 100 ML IV SCH (17:19)
[2018-06-06] MEDS: SENNOSIDES/DOCUSATE SODIUM TAB PO SCH (21:52)
[2018-06-06] MEDS: FAMOTIDINE 20 MG TAB PO SCH (21:53)
[2018-06-07] MEDS: ACETAMINOPHEN 325 MG TAB PO SCH ×2 (01:05→05:35)
[2018-06-07] MEDS: oxyCODONE IR 5 MG TAB PO PRN ×2 (01:07→05:35)
[2018-06-07] MEDS: CYCLOBENZAPRINE 10 MG TAB PO PRN (01:15)
[2018-06-07] MEDS: ceFAZolin 2 GM/DEXTROSE 100 ML IV SCH (01:23)
[2018-06-07 05:19] LABS: INR 1.01 (0.83-1.16); PROTIME(PATIENT) 13.5 SEC (12.0-15.0)
[2018-06-07 08:02] VITALS: BP 138/76
[2018-06-07] MEDS: SENNOSIDES/DOCUSATE SODIUM TAB PO SCH (08:08)
[2018-06-07] MEDS: FAMOTIDINE 20 MG TAB PO SCH (08:09)
--- NOTE | 2018-06-07 08:23 | GOP ---
DATE OF OPERATION: 06/06/2018 SURGEON: Aman Santacruz MD PROGRAM COUNSELOR: TY Russell. ANESTHESIA: Spinal. PREOPERATIVE DIAGNOSIS: Right knee osteoarthritis. POSTOPERATIVE DIAGNOSIS: Right knee osteoarthritis. PROCEDURE PERFORMED: Right total knee arthroplasty with computer navigation, robotic assist. FINDINGS: ESTIMATED BLOOD LOSS: 30 cc. INDICATIONS: The patient is a 58-year-old male with severe and progressive pain and deformity of the right knee unresponsive to conservative care. The risks and benefits of surgical intervention were explained in detail. DESCRIPTION OF PROCEDURE: The patient was brought to the operative room and placed on the table in t he supine position. Spinal anesthesia was induced without difficulty. A pneumatic tourniquet was appl ied about the right proximal thigh, and the leg was prepped and draped in a sterile fashion. The leg mg was applied. After exsanguination by elevation the tourniquet was inflated to 250 mmHg. Incision was made anterior medial from the tibial tuberosity to a point 2 cm proximal to the superior pole of the patella. Medial parapatellar arthrotomy was carried out from the superior pole of the pa tella and posteriorly in line with the fibers of the Type II VMO. The medial collateral ligament was elevated and the infrapatellar fat pad was resected. The patella was everted and the articular surface was excised. A 38 mm patellar button was placed. Attention was turned first to the distal aspect of the femur. After exposure of the femur, 2 half pi ns were placed for fixation of the femoral array. In a similar fashion, 2 pins were placed anteromed ial on the tibia for fixation of the tibial array. External land marking and registration of the hip center were performed without difficulty. Internal femoral and tibial registration was carried out without difficulty and the femoral and tibial checkpoints were placed and verified for accuracy. Attention was turned to the femur. The foot print for the size 6 femoral component was cut with the saw using the Peek@U robotic system and verified for accuracy against the CT based plan. In a similar f ashion, the saw was used to cut the footprint for the size 7 tibial component using the Peek@U system an d verified for accuracy against the CT based plan. The tibial articular surface was excised without d ifficulty, followed by the intercondylar box cut. The knee was extended and the remnants of the medial and lateral meniscus were excised. The posterior capsule was injected with ropivacaine, epinephrine and Toradol. A size 7 tibial tray was positioned . Trial reduction was then carried out. There was excellent range of motion, alignment, and stability using the 7 x 9 mm polyethylene. All trials were then removed. The joint was thoroughly irrigated and carefully dried. The press-fit c omponents were implanted. The permanent 7 x 9 mm polyethylene was placed without difficulty. The tourniquet was deflated and all bleeders were coagulated. The wound was thoroughly irrigated and closed using interrupted sutures of 2-0 Vicryl for the joint capsule. The subcu was closed with 3-0 V icryl and the skin with 4-0 Monocryl. Dermabond and Steri-Strips were applied followed by a compress david dressing. The patient was then moved from the operating room to the recovery room in good conditi on, having tolerated the procedure well. PATHOLOGY: Severe medial and patellofemoral osteoarthritis. /[id number]/MODL
--- NOTE | 2018-06-07 08:51 | SOAPPROG ---
SOAP Progress Note Assessment/Plan: Assessment: Patient is doing well POD 1 s/p R TKA Pain management: pain is well controlled on oral pain meds. VTE ppx: recommend coumadin and lovenox INR 1.01, cont RAMÓN and SCDs Anemia: level is expected initially postop. Asymptomatic. Continue to monitor D/c planning: Patient has done better than anticipated and would like to be discharged to home today. Patient must be released from PT before discharge to home. postop urinary retention: straight cath'd yesterday. resolved today Plan: 06/07/18 08:49 Subjective: boby is doing well ,denies SOB ,chest pain and N/V Objective: Vital Signs Temp Pulse Resp BP Pulse Ox 36.4 C 70 18 138/76 H 93 06/07/18 08:00 06/07/18 08:00 06/07/18 08:00 06/07/18 08:00 06/07/18 08:00 Laboratory Results 06/07/18 04:58 06/06/18 06/07/18 06/08/18 05:59 05:59 05:59 Intake Total 3100 Output Total 4300 Balance -1200 PT 13.5 SEC (12.0-15.0) 06/07/18 04:58 INR 1.01 (0.83-1.16) 06/07/18 04:58 RLE: incision dressing is clean and dry, NVI, +pf/df ICD10 Worksheet Patient Problems: Problems Problem Status Onset Primary localized osteoarthritis of right knee Acute Chest pain Acute
[2018-06-07] MEDS ORDERED: ATORVASTATIN CALCIUM 20 MG TAB PO SCH (09:00)
[2018-06-07] MEDS ORDERED: ENOXAPARIN 40 MG/0.4 ML SYR SC SCH (09:00)
--- NOTE | 2018-06-07 09:19 | GDS ---
ADMISSION DIAGNOSIS: Right knee osteoarthritis. DISCHARGE DIAGNOSIS: Right knee osteoarthritis. PROCEDURE: Right total knee arthroplasty, robotic assisted and sensor assisted. VTE PROPHYLAXIS: Recommend Coumadin and Lovenox due to history of blood clot in his port when he was having chemotherapy. BRIEF DESCRIPTION OF HOSPITAL STAY: Patient was admitted for an elective joint arthroplasty. The pa carmella tolerated the procedure well and has passed physical therapy. The patient was given appropriat e antibiotic prophylaxis and venous thromboembolism prophylaxis. The patient's pain was well control led on oral pain medication, patient was holding down food, and had urinated. Decision was made to d ischarge the patient. The patient was given post-operative prescriptions pre-operatively. PLAN: Please follow up as scheduled, 07/02, at 8 a.m. /[id number]/MODL
--- NOTE | 2018-06-07 09:52 | ASMTLACE ---
LACE Length of stay for Answers: 2 days current admission Acuity / Level of Answers: No Care: Did the patient have an inpatient admission? Comorbidities - select Answers: Opioid dependence all that apply / Chronic pain # of Emergency department Answers: 0 visits in the last 6 months Score: 6 Date Signed: 06/07/2018 09:51 AM Electronically Signed By:STEVEN Ruelas
== END 2018-06-07 11:15 | disposition home or self-care (01) ==
LOC: F3N 06:39
PROVIDERS: ADMIT Orthopaedic Surgery; ATTEND Orthopaedic Surgery
DX: M17.11 Unilateral primary osteoarthritis, right knee (principal)
CPT/HCPCS: 27447; 73560; 97110; 97116; 97161; G0378; J0171; J0690; J1100; J1650; J1885; J2250; J2704; J2795; J3010